=== PATIENT | male | born 1960 | race Hispanic/Latino ===

== ENCOUNTER → 2019-07-28 | Outpatient (CLI) | payer MEDICAID | END | disposition home or self-care (01) | LOC: SHCH 08:04 → EDUNIT# 08:30 | PROVIDERS: ATTEND Internal Medicine Cardiovascular Disease | DX: R07.9 Chest pain, unspecified (principal) | CPT/HCPCS: 93306 ==

== ENCOUNTER 2019-11-22 07:38 | Day surgery (SDC) | payer MEDICAID ==
[2019-11-19 12:48] VITALS: BP 146/89
[2019-11-19 12:55] LABS: BASOPHILS % (AUTO) 0.5 % (0.0-5.0); EOSINOPHILS % (AUTO) 3.2 % (0.0-8.0); HEMATOCRIT 37.9 % (42-54); LYMPHOCYTES % (AUTO) 21.9 % (21.0-51.0); MEAN CORPUSCULAR HEMOGLOBIN 32.7 pg (27.0-33.0); MEAN CORPUSCULAR HGB CONC 35.1 g/dL (32.0-36.0); MEAN CORPUSCULAR VOLUME 93.1 fL (79-99); MONOCYTES % (AUTO) 10.5 % (3.0-13.0); NEUTROPHILS % (AUTO) 63.5 % (40.0-77.0); PLATELET COUNT (AUTO) 221 K/uL (130-400); RED BLOOD CELL COUNT(AUTO) 4.07 MIL/uL (4.50-6.20); RED CELL DISTRIBUTION WIDTH 12.1 % (11.0-15.5); WHITE BLOOD COUNT (AUTO) 11.3 K/uL (4.8-10.8)
[2019-11-19 13:05] LABS: CREATININE 0.8 mg/dL (0.5-1.5); POTASSIUM 3.9 mmol/L (3.5-5.1)
[2019-11-19 13:08] LABS: INR 1.05 (0.85-1.15); PARTIAL THROMBOPLASTIN TIME 27.3 SEC (26.3-35.5)
[2019-11-19 13:51] LABS: APPEARANCE,URINE Clear (CLEAR); BILIRUBIN,URINE Negative (NEGATIVE); COLOR,URINE Yellow (YELLOW); GLUCOSE, URINE (UA) Negative (NEGATIVE); KETONES,URINE Negative (NEGATIVE); LEUKOCYTE ESTERASE ,URINE Negative (NEGATIVE); NITRATE,URINE Negative (NEGATIVE); OCCULT BLOOD,URINE Trace (NEGATIVE); PROTEIN,URINE Negative (NEGATIVE); UROBILINOGEN,URINE 0.2 mg/dL (0.2-1.0)
[2019-11-19 14:17] LABS: BACTERIA,URINE Rare /HPF (None Seen); RBC,URINE 0-1 /HPF (0-1); WBC,URINE None Seen /HPF (0-1)
[2019-11-19 14:18] LABS: SQUAMOUS EPITHELIAL CELL,UR 0-2 /HPF (0-2)
--- NOTE | 2019-11-19 14:33 | NUR ---
LABS ABNORMAL WBC REPORTED TO [facility], FURTHER ORDERS GIVEN AND WILL BE CARRIED OUT. ALSO REPORTED THAT PATIENT REFUSES BLOOD OR BLOOD PRODUCT TRANFUSION IN CASE OF AN EMERGENCY. NO FURTHER ORDERS GIVEN
[2019-11-22] VITALS (8 sets, daily range): BP systolic 113–146; BP diastolic 70–78
[~2019-11-22] VITALS: Ht 157.5 cm; Wt 83.0 kg
[~2019-11-22 07:38] MED LIST: AMLO5TAB9 PO; ASPI-1197 PO; ATOR40TA71 PO; ISOS20TA7 PO; METO-391 PO; NITR0.4T50 SL; [UNRECOGNIZED DRUG - OTHER]
[2019-11-22 07:53] LABS: HEMATOCRIT 41.3 % (42-54); MEAN CORPUSCULAR HEMOGLOBIN 32.6 pg (27.0-33.0); MEAN CORPUSCULAR HGB CONC 34.4 g/dL (32.0-36.0); MEAN CORPUSCULAR VOLUME 94.7 fL (79-99); PLATELET COUNT (AUTO) 230 K/uL (130-400); RED BLOOD CELL COUNT(AUTO) 4.36 MIL/uL (4.50-6.20); RED CELL DISTRIBUTION WIDTH 12.2 % (11.0-15.5); WHITE BLOOD COUNT (AUTO) 8.4 K/uL (4.8-10.8)
[2019-11-22 08:43] LABS: EOSINOPHILS % (MANUAL) 6 % (1-6); LYMPHOCYTES % (MANUAL) 31 % (22-44); MAN.DIFF COMMENT-IMPRESSION MANUAL DIFFERENTIAL; MONOCYTES % (MANUAL) 8 % (2-9); PLATELET MORPHOLOGY COMMENT ADEQUATE; SEGMENTED NEUTROPHILS % 55 % (40-70)
[2019-11-22] MEDS ORDERED: AMLODIPINE BESYLATE 5 MG TAB ONE (09:01)
[2019-11-22] MEDS ORDERED: PHARMACY COMMUNICATION MISC STA (09:02)
[2019-11-22] MEDS ORDERED: AMLODIPINE BESYLATE 5 MG TAB PO SCH (09:15)
[2019-11-22] MEDS ORDERED: METOPROLOL TARTRATE 25 MG TAB PO SCH (09:29)
[2019-11-22] MEDS ORDERED: IOHEXOL 350 MG/ML 100ML INFUS..BTL IV ONE (10:11)
[2019-11-22] MEDS ORDERED: NITROGLYCERIN 5 MG/ML 10 ML VIAL IV ONE (10:11)
[2019-11-22] MEDS ORDERED: IOHEXOL-350 50ML VIAL IV ONE (10:11)
[2019-11-22] MEDS ORDERED: SODIUM BICARB 50MEQ 50ML VIAL ONE (10:11)
[2019-11-22] MEDS ORDERED: BIVALIRUDIN 250 MG/VIAL IV ONE (10:11)
[2019-11-22] MEDS ORDERED: MIDAZOLAM HCL 1 MG/ML 2ML VIAL ONE (10:11)
[2019-11-22] MEDS ORDERED: FENTANYL CITRATE PF 50 MCG/1 ML 2ML VIAL ONE (10:12)
[2019-11-22] MEDS ORDERED: LIDOCAINE HCL 2% 20ML ONE (10:12)
== END 2019-11-22 14:00 | disposition home or self-care (01) ==
LOC: DAH 07:38
PROVIDERS: ATTEND Internal Medicine Cardiovascular Disease
DX: I25.118 Atherosclerotic heart disease of native coronary artery with other forms of angina pectoris (principal); R94.39 Abnormal result of other cardiovascular function study; I10 Essential (primary) hypertension; E78.5 Hyperlipidemia, unspecified; Z79.82 Long term (current) use of aspirin; Z87.891 Personal history of nicotine dependence; Z79.899 Other long term (current) drug therapy; Z98.890 Other specified postprocedural states; Z79.01 Long term (current) use of anticoagulants; Z82.49 Family history of ischemic heart disease and other diseases of the circulatory system; Z82.3 Family history of stroke
CPT/HCPCS: 36415 ×2; 71045; 80048; 81001; 85025 ×2; 85610; 85730; 93005; 93458; A4215; A4216; A4221; A4222; A4223 ×3; A4606; A4663; C1760 ×2; C1894 ×2; J1644; J2250; J3010; J3490 ×3; Q9965 ×2; Q9967; 99156; 99157; J0583